=== PATIENT | female | born 1970 | race Caucasian/White ===

== ENCOUNTER 2022-07-07 07:57 | Emergency (ER) | payer OTHER, SELFPAY ==
--- NOTE | ~2022-07-07 | US_ITS ---
EXAMINATION:US venous doppler LE RT INDICATION:Right knee pain and swelling TECHNIQUE: Multiple grayscale, color flow and Doppler images of the right lower extremity deep venous systems were obtained and reviewed. COMPARISON:No prior studies for comparison. FINDINGS: The common femoral, superficial femoral and popliteal veins demonstrate normal respiratory variation, augmentation and compressibility. Color flow is also seen within the posterior tibial, pe roneal, greater saphenous and profunda veins. IMPRESSION: 1: No lower extremity deep venous thrombosis. Reviewed, dictated and finalized at location B. WELDER
--- NOTE | ~2022-07-07 | XR_ITS ---
XR knee RT 3V 07/07/2022 08:31 Indication: Right knee pain Procedure: 3 views right knee Comparison: No prior studies for comparison. Findings: No fracture, subluxation or dislocation. There is a joint effusion. Mild osteoarthritis. Impression: 1: Moderate joint effusion. 2: Mild osteoarthritis. Reviewed, dictated and finalized at location B. DRYER Impression: 1: Moderate joint effusion. 2: Mild osteoarthritis.
[2022-07-07 07:57] VITALS: BP 158/84; PULSE 91; RESP 16; TEMP 36.8; O2SAT 98
--- NOTE | 2022-07-07 08:15 | ED.LOWEXIN ---
HPI - Extremity Injury (Lower) General Chief Complaint: Extremity Injury, Lower Stated Complaint: right knee pain Time Seen by Provider: 07/07/22 08:13 History of Present Illness HPI Narrative: Pt presents with pain to back of right knee since Tuesday night (4 d ago). Pt denies injury. Pt says thepain has gotten worse and she had to call into work due to the pain. Pt called PCP office and they told her to get to the ER immediately because it might be a clot. Pt has not been on recent trips or had recent surgery. Pt had scope on right knee in 2014 she thinks. Pt denies CP or SOB. Related Data Allergies Allergy/AdvReac Type Severity Reaction Status Date / Time No Known Allergies Allergy Verified 07/07/22 08:12 Review of Systems Review of Systems: All systems reviewed & are unremarkable except as noted in HPI and below Exam Const: General: healthy appearing and no acute distress Nutritional Appearance: well nourished Orientation/consciousness: patient oriented x3 Limitations: no limitations Neck: Neck: normal visual inspection Resp: Effort & Inspection: normal respiratory effort Auscultation: clear to auscultation bilaterally Cardio: Rate: regular rate Rhythm: regular rhythm GI: GI Palp: Yes Soft to palpation Auscultation: normal bowel sounds Skin: General skin exam: normal color Rashes: no rashes Wounds: no wounds Neuro: General: patient oriented x3, moves all extremities, no meningeal signs, no focal motor deficits and CN's II-XI intact bilaterally Speech: normal speech Extrem: General: normal to inspection and no clubbing, cyanosis or edema Other: tender to palpation posterior and medial but no obvious swelling. no instability. Psych: Mental Status: mental status grossly normal Affect: normal affect Attitude: cooperative Course Vital Signs Vital signs: Vital Signs Temperature 98.2 F 07/07/22 07:57 Pulse Rate 91 07/07/22 07:57 Respiratory Rate 16 07/07/22 07:57 Blood Pressure 158/84 H 07/07/22 07:57 Pulse Oximetry 98 07/07/22 07:57 Oxygen Delivery Room Air 07/07/22 07:57 Temperature 98.2 F 07/07/22 07:57 Pulse Rate 72 07/07/22 09:05 Respiratory Rate 16 07/07/22 09:05 Blood Pressure 158/80 H 07/07/22 09:05 Pulse Oximetry 99 03/01/23 09:05 Oxygen Delivery Room Air 07/07/22 09:05 MDM - Extremity Injury (Lower) MDM Narrative Medical decision making narrative: some tenderness to posterior and medial knee thought no injury history. will order RLE DVT and get x ray of knee to rule out fx. venous doppler neg for clot, x ray shows small effusion but no fx and some OA. Will put on crutches and NSAIDS and have follow up with PCP for ortho referral. Discharge Plan Discharge Clinical Impression: Acute knee pain Patient Disposition: Home, Self-Care Condition: Stable Instructions: Antibiotic Form, Knee Pain (ED) Prescriptions: New naproxen [Naprosyn] 500 mg tablet 500 mg PO BID Qty: 20 0RF Follow-up/Referrals: Devante,Alex Whittaker MD [Primary Care Provider] -
--- NOTE | 2022-07-07 08:28 | PC.NURSE ---
PT REPORTS SHE HAS BEEN AMBULATING ON HER TOES DUE TO PAIN WHEN SHE PUTS HER HEEL DOWN
[2022-07-07 09:05] VITALS: BP 158/80; PULSE 72; RESP 16; O2SAT 99
== END 2022-07-07 09:05 | disposition home or self-care (01) ==
PROVIDERS: Emergency Provider Emergency Medicine; PCP Family Medicine
DX: M25.561 Pain in right knee (principal)
CPT/HCPCS: 73562; 93971; 99284